=== PATIENT | female | born 1990 | race Hispanic/Latino ===

== ENCOUNTER 2017-10-16 05:44 | Inpatient (IN) | payer OTHER ==
[2017-10-16] MEDS ORDERED: PEPCID IV ONE (06:06)
[2017-10-16] MEDS ORDERED: BICITRA PO ONE (06:06)
[2017-10-16] MEDS ORDERED: REGLAN IV ONE (06:06)
[2017-10-16] MEDS ORDERED: BRETHINE SUB-Q PRN (06:07)
[2017-10-16] MEDS ORDERED: MINERAL OIL PO PRN (06:07)
[2017-10-16] MEDS ORDERED: XYLOCAINE 2% INFILTRATI ONE (06:07)
[2017-10-16] MEDS ORDERED: ZOFRAN IV PRN ×2 (06:07→10:51)
--- NOTE | 2017-10-16 06:15 | History and Physical Report ---
History of Present Illness Date of examination: 10/16/17 (walk-in; active labor; prev c/s X 2) Date of admission: 10/16/17 05:46 History of present illness: EDC Confirmation: 11/01/2017 Gestational Age: 20 weeks Past History : 5 Term Births: 1 Premature Births: 1 Living Children: 2 Para: 2 Prev : 2 Spont. Ab: 2 # 1 Delivery date: 2003 Weeks Gestation: ? Delivery type: SAB Comments: no no D&C no D&C # 2 Delivery date: 10/2004 Weeks Gestation: FT labor: no Delivery type: Delivery location: [facility] Sex: Male weight: 6-13 Comments: CPD # 3 Delivery date: 2009 Weeks Gestation: ? Delivery type: SAB Comments: no D&C # 4 Delivery date: 10/16/2011 Weeks Gestation: 36 Delivery type: Anesthesia type: epidural Delivery location: [facility] Infant Sex: male weight: 6 Comments: labor Past Medical History: Reviewed history from 03/20/2011 and no changes required: Neurologic Disorder--chronic migraines Past Surgical History: Reviewed history from 03/20/2011 and no changes required: X 2 Tonsillectomy ENT sx Family History Summary: PGM - Has Family History of Diabetes - Entered On: 06/14/2017 MGM - Has Family History of CVA or Stroke - Entered On: 06/14/2017 Aunt - Has Family History of CVA or Stroke - Entered On: 06/14/2017 General Comments - FH: Family History Colon Cancer-father No Family History of Breast Cancer No Family History of Ovarvian Cancer Social History: Patient is single +smoker yes +thc use, denies at this time no etoh Patient is Smoking History: Patient currently smokes every day. Patient has been counseled to quit. 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 Patient has been counseled to quit. Genetic History Congenital Heart Defect: Mom: no Dad: no Isaac Disease: Mom: no Dad: no Thalassemia Mom: no Dad: no Neural Tube Defect Mom: no Dad: no Down's Syndrome Mom: no Dad: no Celestino-Sachs Mom: no Dad: no Sickle Cell Disease/Trait Mom: no Dad: no Hemophilia Mom: no Dad: no Muscular Dystrophy Mom: no Dad: no Cystic Fibrosis Mom: no Dad: no [place] Chorea Mom: no Dad: no Mental Retardation Mom: no Dad: no Fragile X Mom: no Dad: no Other Genetic/Chromosomal Disorder Mom: no Dad: no Child w/other defect Mom: no Dad: no Enviromental Exposures Xray Exposure: no Medication, drug, or alcohol use since LMP: no Chemical/Other Exposure: no Exposure to Cat Liter: no Hx of Parvovirus (Fifth Disease): no Occupational Exposure to Children: none Active Medications (reviewed today): DEPO-PROVERA 150 MG/ML INTRAMUSCULAR SUSPENSION (MEDROXYPROGESTERONE ACETATE) 1 inj x every 12 weeks PHERNEGAN () PAXIL () FIORICET TABS (GXMURMTENX-[id number] TABS) ELAVIL () Current Allergies (reviewed today): CECLOR (Critical) MORPHINE (Critical) Past History - Obstetrical History Expected Date of Delivery: 11/01/17 Actual Gestation: 37 Week(s) 5 Day(s) : 5 Para: 2 Hx # Term Pregnancies: 1 Number of Pregnancies: 1 (36weeks repeat c/s) Spontaneous Abortions: 2 Induced : 0 Number of Living Children: 2 Medications and Allergies Allergies Allergy/AdvReac Type Severity Reaction Status Date / Time cefaclor [From Ceclor] Allergy Hives Verified 01/22/16 01:34 morphine Allergy Itching Verified 01/22/16 01:34 Active Meds: Active Medications Citric Acid/Sodium Citrate (Bicitra) 30 ml PO ONCE ONE Stop: 10/16/17 06:07 Famotidine (Pepcid) 20 mg IV ONCE ONE Stop: 10/16/17 06:07 Cefazolin Sodium (Ancef/Sterile Water 2 Gm/20 Ml) 2 gm in 20 mls @ 80 mls/hr IV PREOP NR; Protocol Lactated Ringer's (Lactated Ringers) 1,000 mls @ 2,250 mls/hr IV PREOP ANDREA Stop: 10/17/17 07:27 Oxytocin/Sodium Chloride (Pitocin/Ns 20 Unit/1000ml Drip) 20 units in 1,000 mls @ 0 mls/hr IV TITR ANDREA Metoclopramide HCl (Reglan) 10 mg IV ONCE ONE Stop: 10/16/17 06:07 - Physical Exam Breasts: Positive: deferred Cardiovascular: Regular rate, Normal S1, Normal S2 Lungs: Positive: Normal air movement Abdomen: Positive: normal appearance, soft, normal bowel sounds. Negative: distention, tenderness Genitourinary (Female): Positive: normal perenium Vulva: both: normal Vagina: Positive: normal moisture. Negative: discharge Cervix: Negative: lesion, discharge Uterus: Positive: normal size, normal contour Adnexa: both: normal Anus/Rectum: Positive: normal perianal skin, heme negative. Negative: rectal mass, hemorrhoids Extremities: Positive: normal, edema Deep Tendon Reflex Grade: Normal +2 - Obstetrical FHR: category 1 Uterine Contraction Monitor Mode: External Uterine Contraction Pattern: Regular Uterine Tone Measurement Phase: Resting Uterine Contraction Intensity: Moderate Results All other labs normal. No labs done Pt was self pay at the time. Pt has not been seen for care since 23 weeks. Assessment and Plan 27yo @ 37 weeks in active labor previous c/s X 2 Insufficient care. Smoker. Hx drug use. consulted. Prep for surgery. Orders in EMR - Patient Problems (1) Drug abuse Onset Date: ~10/16/17 Current Visit: Yes Status: Acute Plan to address problem: pt denies use during in UDS ordered (2) care insufficient Onset Date: ~10/16/17 Current Visit: Yes Status: Acute Plan to address problem: 27yo who has not been seen for care since 23 weeks. Pt did NOT have her OB labs done because she could not pay for them. Will draw now. EDC 11-01-17 previous c/s X 2 Consulted prep pt for repeat c/s Order in EMR (3) Previous section Onset Date: ~10/16/17 Current Visit: Yes Status: Acute Plan to address problem: pt in active labor Will prepare for repeat section
[2017-10-16 06:55] LABS: Hematocrit 36.4 % (30.3-42.9); Mean Corpuscular HGB Conc 33 % (30-34); Mean Corpuscular Hemoglobin 28 pg (28-32); Mean Corpuscular Volume 85 fl (79-97); Red Blood Count 4.29 M/mm3 (3.65-5.03); Red Cell Distribution Width 15.3 % (13.2-15.2)
[2017-10-16] MEDS ORDERED: CLEOCIN 600 MG/50 mL 600 MG/50 ML BAG IV NR (07:00)
[2017-10-16] MEDS ORDERED: PITOCin/NS 20 UNIT/1000ML DRIP 20 UNITS/1,000 ML BAG IV SCH ×2 (07:00→10:51)
[2017-10-16] MEDS ORDERED: ANCEF/STERILE WATER 2 GM/20 ML 2 GM/20 ML SYRINGE IV NR (07:00)
[2017-10-16] MEDS ORDERED: LACTATED RINGERS 1,000 ML IV SCH ×2 (07:00)
[2017-10-16] MEDS ORDERED: NEO SYNEPHRINE/NS Syringe(OR USE) IV ONE (07:08)
[2017-10-16 07:16] LABS: Bilirubin,Urine NEG (Negative); Blood,Urine NEG (Negative); Color,Urine Yellow (Yellow); Mucus,Urine FEW /HPF; Protein,Urine <15 mg/dL mg/dL (Negative); Urobilinogen,Urine < 2.0 mg/dL (<2.0)
[2017-10-16 07:21] LABS: Amphetamine Screen,Urine PRESUMPTIVE NEGATIVE; Benzodiazepines Screen,Urine PRESUMPTIVE NEGATIVE; Cocaine Screen,Urine PRESUMPTIVE NEGATIVE; Methadone Screen,Urine PRESUMPTIVE NEGATIVE; Opiate Screen,Urine PRESUMPTIVE NEGATIVE
[2017-10-16 07:35] LABS: Cannabinoid Screen,Urine PRESUMPTIVE POSITIVE
[2017-10-16 07:39] LABS: Basophils % (Manual) 0 % (0.0-1.8); Total Cells Counted 100
[2017-10-16] MEDS ORDERED: ZOFRAN ONE ×2 (07:39→08:25)
[2017-10-16 07:40] LABS: Anisocytosis 1+; Band Neutrophils # (Manual) 0.2 K/mm3; Eosinophils % (Manual) 0 % (0.0-4.3); Ovalocytes 1+
[2017-10-16 07:41] LABS: Large Platelets Few; Platelet Count 155 K/mm3 (140-440); Stomatocytes Few
[2017-10-16] MEDS ORDERED: VERSED ONE (07:59)
[2017-10-16] MEDS ORDERED: SUBLIMAZE ONE (08:05)
[2017-10-16] MEDS ORDERED: DIPRIVAN 10 MG/ML IV ONE (08:07)
[2017-10-16 08:17] LABS: Hepatitis C Virus Antibody Non-Reactive (NonReactive)
[2017-10-16] MEDS ORDERED: WATER FOR IRRIG STERILE IR ONE (08:26)
[2017-10-16] MEDS ORDERED: NACL 0.9% IR ONE (08:26)
[2017-10-16 08:47] LABS: Rubella IgG Antibody Immune (Immune)
[2017-10-16] MEDS ORDERED: DEMEROL IV PRN (09:41)
--- NOTE | 2017-10-16 09:41 | Operative Report ---
Operative Report Operative Report: Date: 10/16/2017 Preoperative diagnosis: 1. Intrauterine at 37 weeks gestation 2. Previous delivery 2 3. Active labor 4. Limited care Postoperative diagnosis: 1. Intrauterine at 37 weeks gestation 2. Previous delivery 2 3. Active labor 4. Limited care Procedure: Low uterine transverse incision for delivery Surgeon: Heather Wilkinson MD Power Lineman: Aleisha Ferrera CST Anesthesia: Failed CSE; general endotracheal anesthesia Anesthesiologist: Glory Montana M.D. Estimated blood loss: 700 mL Urine out: 150 mL clear yellow urine Findings: Live born male infant. Weight 6 lbs. 13 oz. Apgars 8 at 1 minute and 9 at 5 minutes. Uterus grossly normal, tubes grossly normal, ovaries grossly normal. Procedure: After risk, benefits, complications, consequences and alternatives for this procedure were discussed with patient and consents were reviewed and signed, she was taken to the OR where CSE was placed. She was then placed in the left lateral tilt position, and prepped and draped in the usual sterile fashion. Timeout was performed. Patient never received relief therefore general endotracheal anesthesia was performed. A Pfannenstiel incision was made and extended to the fascia which was incised and extended in the lateral directions. The overlying fascia was sharply dissected away from the underlying rectus muscles in the superior and inferior directions. The midline was entered bluntly. The vesicouterine fold was incised and with blunt dissection the bladder flap was created. A transverse incision was made in the lower uterine segment and extended in superiolateral direction with finger fractionation. Clear foul-smelling fluid was noted. The infant was delivered from cephalic position. Mouth and nose were bulb suctioned. Spontaneous cry and excellent tone were noted. Cord was doubly clamped and cut. The infant was given to /resuscitation team present. The placenta was manually extracted. The uterus was then exteriorized and cleared of any further products of conception or placental tissue. The incision was reapproximated using 0 Vicryl in a running interlocking stitch. Grossly normal uterus, tubes and ovaries were noted. Once hemostasis was noted, the uterus was allowed back into the pelvic cavity. The pelvis was irrigated with warm normal saline. Again hemostasis was noted . Tisseel applied for further hemostasis. Interceed was then placed to prevent adhesions. Then attention was turned to the rectus muscles. The rectus muscles reapproximated using 0 Vicryl in a simple interrupted stitch x 3. Once hemostasis was noted, the fascia was reapproximated using 0 Vicryl running stitch fashion. Once hemostasis was noted skin incision was reapproximated using 3-0 Monocryl on a PS 2 needle in a subcuticular manner. Counts were correct 3. Patient tolerated procedure well state recovery room in stable condition.
[2017-10-16] MEDS ORDERED: DILAUDID IV PRN (09:42)
[2017-10-16] MEDS ORDERED: DEMEROL ONE (10:08)
[2017-10-16] MEDS ORDERED: MILK OF MAGNESIA PO PRN (10:51)
[2017-10-16] MEDS ORDERED: PHENERGAN PR PRN (10:51)
[2017-10-16] MEDS ORDERED: TYLENOL PR PRN (10:51)
[2017-10-16] MEDS ORDERED: SODIUM CHLORIDE FLUSH SYRINGE 10 ML IV NR (10:51)
[2017-10-16] MEDS ORDERED: LANSINOH TP PRN (10:51)
[2017-10-16] MEDS ORDERED: TUCKS PAD TP PRN (10:51)
[2017-10-16] MEDS ORDERED: NARCAN 0.4 MG/1 ML IV PRN (10:51)
[2017-10-16] MEDS: TYLENOL PO SCH ×3 (11:33→23:56)
[2017-10-16] MEDS: D5LR 1,000 ML IV SCH ×2 (12:45→20:47)
[2017-10-16] MEDS: CLEOCIN 600 MG/50 mL 600 MG/50 ML BAG IV SCH ×2 (13:00→23:41)
[2017-10-16] MEDS: TORADOL IV SCH ×2 (15:45→22:28)
[2017-10-16] MEDS: MOTRIN PO PRN (20:46)
[2017-10-16 23:25] LABS: Hematocrit 30.3 % (30.3-42.9); Hemoglobin 9.8 gm/dl (10.1-14.3)
[2017-10-17] MEDS: TORADOL IV SCH ×2 (03:58→09:00)
[2017-10-17] MEDS: MYLICON PO PRN ×3 (05:35→20:49)
[2017-10-17] MEDS: TYLENOL PO SCH (05:36)
[2017-10-17] MEDS ORDERED: BOOSTRIX IM ONE (06:00)
--- NOTE | 2017-10-17 07:20 | Progress Note ---
Assessment and Plan Patient overheard screaming at family in room. Upon entering room, she began yelling at me that she was only given "toradol and tylenol" and she needs "real pain medication" and then asking "when can I go home?" Orders reviewed - percocet ordered by Dr. Wilkinson yesterday. RN will give patient medication. She reports she has been ambulating to bathroom. H&H 9.8, VSSAF, lochia scant. Dressing D&I - rn to remove later today. Continue current postop management. d/ c home tomorrow if stable. - Patient Problems (1) delivery delivered Current Visit: Yes Status: Acute (2) Drug abuse Onset Date: ~10/16/17 Current Visit: Yes Status: Acute (3) care insufficient Onset Date: ~10/16/17 Current Visit: Yes Status: Acute (4) Smoker Current Visit: Yes Status: Acute Subjective - Subjective Date of service: 10/17/17 Principal diagnosis: postop day #1 s/p repeat c/s Patient reports: ambulating normally, no dizzy ambulation, no pain well controlled, no nauseated : doing well Objective - Vital Signs Latest vital signs: Vital Signs Temp Pulse Resp BP BP Pulse Ox 10/17/17 06:25 98.4 F 88 20 122/68 10/17/17 06:19 20 10/17/17 05:36 18 10/17/17 04:28 20 10/17/17 03:58 20 10/17/17 00:56 20 10/17/17 00:00 98.0 F 85 20 112/62 10/16/17 22:58 18 10/16/17 22:28 18 10/16/17 21:46 20 10/16/17 20:46 18 10/16/17 20:25 98.0 F 91 H 20 118/66 10/16/17 19:45 20 10/16/17 16:18 98.9 F 99 H 20 125/59 10/16/17 11:50 97.5 F L 87 20 99/50 10/16/17 10:05 16 10/16/17 09:55 98.0 F 78 16 122/74 100 10/16/17 09:25 92 H 14 124/75 100 10/16/17 09:10 100 H 16 121/71 100 09/11/18 09:05 102 H 18 131/81 100 10/16/17 09:00 98.0 F 110 H 14 107/42 100 Intake and Output 10/16/17 10/16/17 10/17/17 15:59 23:59 07:59 Intake Total 2570 1600 240 Output Total 350 1300 1100 Balance 2220 300 -860 Intake: IV 2450 1000 CLEOCIN 600 MG/50 mL 600 50 mg In 50 ml @ 100 mls/hr IV Q8H ANDREA Rx#:[id number] 1,000 ml @ 125 mls/ 1000 hr IV DIRECT ANDREA Rx#: [id number] Oral 120 600 240 Output: Urine 350 1300 1100 Indwelling Catheter 300 1300 Void 1100 Other: Total, Intake Amount 120 240 240 Total, Output Amount 300 800 800 # Voids Void 2 Estimated Blood Loss 700 - Exam Breasts: Present: normal Cardiovascular: Present: Regular rate Lungs: Present: Clear to auscultation, Normal air movement Abdomen: Present: normal appearance, soft Uterus: Present: normal, firm Extremities: Present: normal Incision: Present: normal, dry, dressed - Labs Labs: Abnormal lab results 10/16/17 10/16/17 10/16/17 Range/Units 06:25 06:30 22:42 Hgb 9.8 L (10.1-14.3) gm/dl Seg Neuts % (Manual) 81.0 H (40.0-70.0) % Seg Neutrophils # Man 17.9 H (1.8-7.7) K/mm3 Urine WBC (Auto) 19.0 H (0.0-6.0) /HPF
[2017-10-17] MEDS: PERCOCET 5/325 PO PRN ×3 (07:45→20:49)
[2017-10-17] MEDS: MOTRIN PO PRN ×3 (10:24→23:50)
[2017-10-18] MEDS: PERCOCET 5/325 PO PRN ×2 (03:03→09:01)
[2017-10-18] MEDS: MOTRIN PO PRN ×2 (05:54→11:08)
--- NOTE | 2017-10-18 06:19 | Discharge Summary ---
Providers - Providers Date of Admission: 10/16/17 05:46 Date of discharge: 10/18/17 (pt desires d/c) Attending physician: KVNG NEUMANN 10/16/17 10:51 Consult to Case Management [CONS] Routine Services Needed at Discharge: Client Portfolio Manager Notified:: yes Phone number called:: [phone] Was contact made?: Yes Time called:: 11:12 Additional Physician Instructions: No care,positive THC Consult to Lawn Care Worker [CONS] Routine Reason For Exam: Primary care physician: KVNG NEUMANN Hospitalization Reason for admission: active labor, section Delivery: Procedure: repeat low transverse Episiotomy: none, midline Laceration: none Incision: normal, dry, intact Other procedures: none complications: none Discharge diagnosis: IUP at term delivered [place] baby: male Hospital course: very limited care; pt presented in active labor; uncomplicated repeat section Pt OOB to toilet VSS FF below umb Lochia scant Incision D&I H&H stable No s/sx of anemia Doing well s/p c/s P: d/c today with instructions RTO one week postop care. Condition at discharge: Good Disposition: DC-01 TO HOME OR SELFCARE - Discharge Diagnoses (1) delivery delivered Status: Acute Comment: RTO 1 week postop care Plan - Discharge Medications Prescriptions: Ibuprofen [Motrin 800 MG tab] 800 mg PO TID PRN #30 tablet PRN Reason: Pain Lidocain2.5%/Prilocai2.5% [Emla] 5 gm TP ONCE #1 tube oxyCODONE /ACETAMINOPHEN [Percocet 5/325 mg] 1 - 2 tab PO Q4HR PRN #30 tablet PRN Reason: Pain - Provider Discharge Summary Activity: routine, no sex for 6 weeks, no heavy lifting 4 weeks, no strenuous exercise Diet: routine Instructions: routine Additional instructions: [] Smoking cessation referral if applicable(refer to patient education folder for contact #) [] Refer to [facility] Center Booklet Call your doctor immediately for: * Fever > 100.5 * Heavy vaginal bleeding ( >1 pad per hour) * Severe persistent headache * Shortness of breath * Reddened, hot, painful area to leg or breast * Drainage or odor from incision. * Keep incision clean and dry at all times and follow doctor's instructions regarding bathing/showering - Follow up plan Follow up: KVNG NEUMANN MD [Primary Care Provider] - 7 Days (Please call [phone] to schedule your postoperative visit in one week. Take medications as prescribed. Call with concerns.)
[2017-10-18] MEDS ORDERED: BOOSTRIX IM ONE (06:30)
[2017-10-18 12:53] VITALS: BP 102/60
== END 2017-10-18 12:00 | disposition home or self-care (01) | DRG 766 ==
LOC: TRG 05:44 → APU 05:46 → OB 10:40
PROVIDERS: ADMIT Obstetrics & Gynecology; ATTEND Obstetrics & Gynecology
PROC: 10D00Z1 Extraction of Products of Conception, Low, Open Approach (ICD-10-PCS; principal; 2017-10-16)
DX: O34.211 Maternal care for low transverse scar from previous cesarean delivery (principal); F19.10 Other psychoactive substance abuse, uncomplicated; O99.334 Smoking (tobacco) complicating childbirth; F17.200 Nicotine dependence, unspecified, uncomplicated; Z37.0 Single live birth; O09.33 Supervision of pregnancy with insufficient antenatal care, third trimester; Z82.3 Family history of stroke; Z83.3 Family history of diabetes mellitus; Z80.8 Family history of malignant neoplasm of other organs or systems; Z88.5 Allergy status to narcotic agent; Z3A.37 37 weeks gestation of pregnancy
CPT/HCPCS: 36415; 80307; 81001; 83036; 85007; 85014; 85018; 85025; 85660; 86592; 86706; 86762; 86803; 86850; 86900; 86901; 87806; 88307; 90471; 90715; 99211; C1765; G0463; J1170; J1885; J2175; J2250; J2370; J2405; J2590; J2704; J2765; J3010; J3105; J7120; J7121